=== PATIENT | male | born 1940 | race Caucasian/White ===

== ENCOUNTER 2021-04-13 13:06 | Outpatient (CLI) | payer MEDICARE, SELFPAY ==
--- NOTE | 2021-04-13 13:18 | USCV_ITS ---
Willi Kapadia Age: 81 Gender: M : 1940 Exam Date: 04/13/2021 14:04 Ordering Phys: Parker Olivares MD Technologist: Segundo Price [place] [facility] [place]: MITRAL VALVE REPLACEMENT AND AO VALVE REPLACEMENT BP: 116 / 64 HR: 41 Rhythm: Other Technical Quality: Technically difficult study MEASUREMENTS (Male / Female) Normal Values 2D ECHO LV Diastolic Diameter PLAX 4.7 cm 4.2 - 5.9 / 3.9 - 5.3 cm LV Systolic Diameter PLAX 3.5 cm IVS Diastolic Thickness 0.9 cm 0.6 - 1.0 / 0.6 - 0.9 cm IVS Systolic Thickness 1.1 cm LVPW Diastolic Thickness 2.0 cm 0.6 - 1.0 / 0.6 - 0.9 cm LVPW Systolic Thickness 2.6 cm LVOT Diameter 2.1 cm LV Ejection Fraction 2D Teich 51.4 % LV Ejection Fraction MOD 2C 59.9 % LV Ejection Fraction 2C AL 61.0 % LA Diameter 5.0 cm LA Width 4.6 cm LA Height 6.0 cm RA Width 5.9 cm RA Height 6.3 cm Aorta at Sinotubular Diameter 2.5 cm DOPPLER AV Peak Velocity 283.0 cm/s LVOT Peak Velocity 97.0 cm/s AV Area Cont Eq vti 1.2 cm squared AV Area Cont Eq pk 1.2 cm squared TR Peak Velocity 276.0 cm/s TR Peak Gradient 30.5 mmHg TR Mean Velocity 218.4 cm/s TR Mean Gradient 22.1 mmHg TR Velocity Time Integral 36.6 cm PV Peak Velocity 124.0 cm/s RV Acceleration Time 0.1 s RV Ejection Time 0.3 s RV AcT/ET 0.2 FINDINGS Left Ventricle Limited quality echocardiogram because of poor ultrasonic windows. Normal left ventricular size. Grossly LV systolic function is normal. Regional wall motion abnormalities cannot be assessed because of poor visualization. 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 Because of limited quality and Doppler signals, mitral valve cannot be completely assessed. No significant mitral regurgitation is seen. 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 DVI is normal and is 0.39 indicating normally functioning aortic valve. By continuity equation, aortic valve area is 1.3 cm squared with mean gradient of 20 mmHg. This is consistent with mild to moderate stenosis. There is no aortic regurgitation. Tricuspid Valve Grossly normal tricuspid valve without significant stenosis. Moderate tricuspid regurgitation. RVSP is 35 to 40 mmHg. This is consistent with mild pulmonary hypertension. Pulmonic Valve Not well-visualized. There is mild to moderate pulmonic regurgitation. Pericardium Normal pericardium without effusion. Aorta Normal ascending aorta dimension. CONCLUSIONS This is limited quality echocardiogram because of poor ultrasonic windows. Grossly LV systolic function is normal. 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 Normal DVI for aortic valve indicating normal functioning valve. Limited Doppler signals for mitral valve, cannot be completely assessed. No significant mitral regurgitation seen. Mild pulmonary hypertension Moderate tricuspid regurgitation. No comparison studies are available. Sunny Kirby MD (Electronically Signed) Final Date: 20 April 2021 11:28 S
== END 2021-04-13 13:07 | disposition home or self-care (01) ==
LOC: US 13:15
PROVIDERS: Visit Provider Internal Medicine
DX: I27.20 Pulmonary hypertension, unspecified (principal); I07.1 Rheumatic tricuspid insufficiency; Z95.2 Presence of prosthetic heart valve
CPT/HCPCS: 93306

== ENCOUNTER → 2022-10-14 10:59 | Outpatient (BNVA) | payer MEDICARE, SELFPAY | PROVIDERS: Referring Provider Registered Nurse; Visit Provider Physician Assistant | DX: M54.9 Dorsalgia, unspecified (principal); M48.062 Spinal stenosis, lumbar region with neurogenic claudication; M51.36 Other intervertebral disc degeneration, lumbar region | CPT/HCPCS: 99203 ==

== ENCOUNTER → 2022-10-14 11:19 | Outpatient (BNVA) | payer MEDICARE, SELFPAY | PROVIDERS: Referring Provider Registered Nurse; Visit Provider Physician Assistant | DX: M54.9 Dorsalgia, unspecified (principal); M48.062 Spinal stenosis, lumbar region with neurogenic claudication; M51.36 Other intervertebral disc degeneration, lumbar region | CPT/HCPCS: 72110; 99203 ==